=== PATIENT | male | born 1965 | race African-American/Black ===

== ENCOUNTER 2018-06-23 05:20 | Day surgery (SDC) | payer OTHER ==
[2018-06-22 12:53] VITALS: BMI 23.6
[2018-06-23] MEDS ORDERED: LIDOCAINE HCL 1%, 10 MG/ML (20ML VIAL) ONE (09:32)
--- NOTE | 2018-06-23 09:32 | HP ---
History & Physical Update - History History: No Change - Physical Physical: No Change - Assessment Assessment: No Change - Plan Plan: No Change (for LIH repair w/mesh; r/b/t/a/'s possible recurrence d/w the patient pre-op in the office and informaed consent obtained)
[2018-06-23] MEDS ORDERED: BUPIVACAINE HCL/PF 0.5% (5MG/ML) 10 ML VIAL ONE (09:33)
[2018-06-23] MEDS ORDERED: BENZOIN TINCTURE SWABSTICK TP ONE (09:34)
[2018-06-23] MEDS ORDERED: oxyCODONE HCL 5 MG TABLET PO PRN (09:48)
[2018-06-23] MEDS ORDERED: PROMETHAZINE HCL 25 MG/1 ML VIAL IVPUSH PRN (09:48)
[2018-06-23] MEDS ORDERED: ONDANSETRON 4 MG/2 ML VIAL IVPUSH PRN (09:48)
[2018-06-23] MEDS ORDERED: MIDAZOLAM HCL 2 MG/2 ML SINGLE DOSE VIAL ONE ×2 (09:54)
[2018-06-23] MEDS ORDERED: ROCURONIUM BROMIDE 50 MG/5 ML VIAL ONE (09:58)
[2018-06-23] MEDS ORDERED: fentaNYL CITRATE 250 MCG/5 ML VIAL ONE (09:58)
[2018-06-23] MEDS ORDERED: LACTATED RINGERS SOLUTION 1,000 ML IV SCH (10:00)
[2018-06-23] MEDS ORDERED: PROPOFOL 20 ML ONE (10:00)
[2018-06-23] MEDS ORDERED: ceFAZolin SODIUM 1 GM VIAL IVPB ONE (10:02)
[2018-06-23] MEDS ORDERED: LIDOCAINE HCL 1%, 10 MG/ML (50 mL VIAL) IJ ONE ×2 (10:19)
[2018-06-23] MEDS ORDERED: BUPIVACAINE HCL/PF (5 MG/ML) 30 ML VIAL IJ ONE ×2 (10:19)
[2018-06-23] MEDS ORDERED: ePHEDrine SULFATE 50 MG/1 ML AMPULE ONE (10:34)
[2018-06-23] MEDS ORDERED: GLYCOPYRROLATE 0.2 MG/1 ML VIAL ONE (11:00)
[2018-06-23] MEDS ORDERED: NEOSTIGMINE METHYLSULFATE 0.5 MG/ML - 10 ML MDV ONE (11:00)
--- NOTE | 2018-06-23 12:27 | OP ---
Operative Note - Note: Operative Date: 06/23/18 Pre-Operative Diagnosis: Left inguinal hernia Operation: Open left inguinal hernia repair with mesh Post-Operative Diagnosis: Same as Pre-op Surgeon: All Mcmillan Turner Off: Risa Fried Anesthesiologist/SYSTEM SUPPORT DEVELOPER: Demi Knutson MD Anesthesia: General Estimated Blood Loss (mls): 20 Fluid Volume Replaced (mls): 1,000 Operative Report Dictated: Yes
--- NOTE | 2018-06-23 12:29 | SURG ---
Surgery Manager Style Note Manager Style: Risa Fried PA-C Date of Service: 06/23/18 Diagnosis: left inguinal hernia Procedure: Left inguinal hernia repair with mesh I was present for the entirety of the operative procedure. For further detail, please refer to operative report. Visit type - Case Type Case Type: Scheduled - Emergency Emergency Visit: No - New patient This patient is new to me today: Yes Date on this admission: 06/23/18
[2018-06-23 13:40] VITALS: BP 159/96; PULSE 60; TEMP 97.7
--- NOTE | 2018-06-27 19:13 | OP ---
DATE OF OPERATION: 06/23/2018 PREOPERATIVE DIAGNOSIS: Left inguinal hernia. POSTOPERATIVE DIAGNOSIS: Left inguinal hernia. PROCEDURE: Repair of left inguinal hernia with mesh. SURGEON: All Mcmillan MD [employer] 9 THRU 12 TEACHER: Risa Fried PA-C ANESTHESIA: General. OPERATIVE FINDINGS: There was a direct left inguinal hernia. The rest of the findings were unremarkable. DESCRIPTION OF PROCEDURE: The patient was placed on the operating table in supine position, and after the induction of general anesthesia, the patient's left groin was prepped with ChloraPrep and draped in sterile fashion. A timeout was taken and incision mapped out in the left groin and the area infiltrated with 1% Xylocaine and 0.5% Marcaine in equal concentration. Incision was made with a scalpel and taken down through skin, subcutaneous tissue, and Darrell fascia to the external oblique fascia. It was divided proximally and then distally through the external ring in the direction of its fibers. The cord structures and nerve were elevated to the level of the pubic tubercle and a Meridian drain placed around them for traction and identification purposes. The previously noted findings were observed. There was no evidence of an indirect inguinal hernia. A piece of Parietex ProGrip mesh was fashioned into the defect and anchored at the pubic tubercle, shelving edge, and conjoint tendon, respectively, with interrupted 2-0 Prolene. A keyhole was created for the cord structures and the tails of the mesh brought above the level of the internal ring and anchored there with interrupted 2-0 Prolene. Hemostasis was checked for and noted to be good, and then, the wound was copiously irrigated with sterile saline. Hemostasis was again verified, and then, the cord structures and nerve were returned to their normal anatomic position. The external oblique fascia was closed using continuous 2-0 Vicryl, recreating the external ring. Darrell fascia was reapproximated with interrupted 2-0 Vicryl, the deep dermis with interrupted 3-0 Vicryl, and the skin edges with 4-0 Monocryl in a subcuticular continuous fashion. Steri-Strips, fluffs, and Tegaderm dressing were placed and the procedure terminated at this point and the patient aroused from general anesthesia and transferred to the postanesthesia care unit in stable condition, awake and alert. ESTIMATED BLOOD LOSS: 10 mL REPLACEMENTS: Crystalloid. DRAINS: None. SPECIMENS: None. I, All N. Mcmillan, MD, was physically present in the operating room from the time the patient was placed on the operating table until he was transferred to the postanesthesia care unit in my accompaniment. All Mcmillan MD [id number] [id number]
== END 2018-06-23 13:35 | disposition home or self-care (01) ==
LOC: JASU-SURG 05:20
PROVIDERS: ATTEND Surgery
PROC: 0YU60JZ Supplement Left Inguinal Region with Synthetic Substitute, Open Approach (ICD-10-PCS; principal; 2018-06-23 10:00)
DX: K40.90 Unilateral inguinal hernia, without obstruction or gangrene, not specified as recurrent (principal); I10 Essential (primary) hypertension
CPT/HCPCS: 94760

== ENCOUNTER 2021-01-30 08:58 | Observation (INO) | payer OTHER ==
[2021-01-30 09:16] VITALS: BMI 22.1
[2021-01-30] MEDS ORDERED: SODIUM CHLORIDE 0.9% 500 ML INFUS.BAG IV ONE (09:33)
[2021-01-30 10:10] LABS: EPI CELLS 2 /uL (0-25.1); HYALINE CASTS 0 /uL (0-3.1); URINE APPEARANCE CLEAR; URINE BACTERIA 19 /uL (0-1359); URINE BILIRUBIN NEGATIVE (NEGATIVE); URINE COLOR YELLOW; URINE GLUCOSE (UA) NEGATIVE (NEGATIVE); URINE KETONE 2+ (NEGATIVE); URINE LEUK ESTERASE NEGATIVE (NEGATIVE); URINE NITRITE NEGATIVE (NEGATIVE); URINE PROTEIN 1+ (NEGATIVE); URINE RBC 80 /uL (0-23.9); URINE WBC 3 /uL (0-25.8)
[2021-01-30 10:10] LABS: HEMOGLOBIN 12.9 GM/dL (11.7-16.9); MCH 25.5 pg (25.7-33.7); MCHC 32.3 g/dl (32.0-35.9); MEAN PLT VOLUME 8.4 fl (7.5-11.1); PLATELET COUNT 354 10^3/uL (134-434); RBC 5.06 M/mm3 (4.00-5.60); RDW 17.5 % (11.9-15.9)
[2021-01-30 10:19] LABS: WHITE BLOOD COUNT 18.9 K/mm3 (4.0-10.0)
[2021-01-30 10:34] LABS: METHADONE, UR NEGATIVE (NEGATIVE); URINE BENZODIAZEPINES NEGATIVE (NEGATIVE)
[2021-01-30 10:35] LABS: CALCIUM 9.7 mg/dL (8.5-10.1)
[2021-01-30 10:36] LABS: ALBUMIN 3.4 g/dl (3.4-5.0); BLOOD UREA NITROGEN 13.5 mg/dL (7-18)
[2021-01-30 10:40] LABS: BILIRUBIN,TOTAL 0.5 mg/dL (0.2-1)
[2021-01-30 10:42] LABS: TOT PROT 8.9 g/dl (6.4-8.2)
[2021-01-30] MEDS ORDERED: BUPRENORPHINE/NALOXONE 4 MG/1 MG FILM PACKET SL ONE (10:45)
[2021-01-30 10:47] LABS: COCAINE, UR POSITIVE (NEGATIVE); OPIATES, URI POSITIVE (NEGATIVE); PHENCYCLIDINE,URINE NEGATIVE (NEGATIVE); URINE AMPHETAMINES NEGATIVE (NEGATIVE); URINE BARBITURATES NEGATIVE (NEGATIVE)
[2021-01-30] MEDS ORDERED: VANCOMYCIN 1 GM in D5W (PRE-DOCKED) 1,000 MG/250 ML IVPB ONE (10:47)
[2021-01-30] MEDS ORDERED: BUPRENORPHINE/NALOXONE 8 MG/2 MG FILM PACKET ONE (10:50)
[2021-01-30] MEDS ORDERED: VANCOMYCIN 1 GRAM (PRE-DOCKED) 1,000 MG/250 ML BAG IVPB ONE (11:11)
[2021-01-30 11:17] LABS: ANISOCYTOSIS 0; HELMET CELLS 0; HOWELL-JOLLY BODIES 0; MACROCYTOSIS 0; OVALOCYTE 0; PLATELET ESTIMATE NORMAL; ROULEAU 0; SICKELED CELLS 0; TARGET CELLS 0; TEAR DROP CELLS 0; TOXIC GRANULATION 0
[2021-01-30] MEDS ORDERED: methaDONE HCL 10 MG TABLET (FOR DETOX USE ONLY) PO ONE (11:38)
[2021-01-30] MEDS ORDERED: methaDONE HCL 10 MG TABLET ONE (11:52)
[2021-01-30] MEDS ORDERED: ONDANSETRON 4 MG/2 ML VIAL IVPUSH ONE (12:01)
[2021-01-30] MEDS ORDERED: ONDANSETRON 4 MG/2 ML VIAL ONE (12:03)
[2021-01-30] MEDS ORDERED: cloNIDine HCL 0.1 MG TABLET PO ONE ×2 (12:15→16:18)
[2021-01-30] MEDS ORDERED: cloNIDine HCL 0.1 MG TABLET ONE ×2 (12:18→17:06)
[2021-01-30] MEDS ORDERED: TRIMETHOBENZAMIDE HCL 200MG/2ML INJ IM PRN (13:58)
[2021-01-30] MEDS ORDERED: MAGNESIUM SULF 50% (8.12 MEQ/2 ML-1 GM VIAL) IVPB ONE (13:59)
[2021-01-30] MEDS ORDERED: SODIUM CHLORIDE 1,000 ML IV SCH (14:00)
[2021-01-30] MEDS ORDERED: LOPERAMIDE HCL 2 MG CAPSULE PO PRN (14:02)
[2021-01-30] MEDS ORDERED: MAGNESIUM SULFATE IN WATER 2 GM/50 ML IVPB IVPB ONE (14:08)
[2021-01-30] MEDS ORDERED: ACETAMINOPHEN 500 MG TABLET (FP) PO ONE (16:59)
[2021-01-30] MEDS ORDERED: DICYCLOMINE HCL 20 MG/2 ML AMPUL IM ONE (16:59)
[2021-01-30] MEDS ORDERED: ACETAMINOPHEN 325 MG TABLET (FP) ONE (17:06)
[2021-01-30] MEDS: cloNIDine HCL 0.1 MG TABLET PO PRN ×2 (18:52→22:45)
[2021-01-30] MEDS ORDERED: LIDOCAINE 5% TOPICAL PATCH TP ONE (20:00)
[2021-01-30] MEDS ORDERED: MELATONIN 5 MG TABLETS PO ONE (20:56)
[2021-01-31] MEDS ORDERED: amLODIPine BESYLATE 5 MG TABLET (FP) PO ONE (02:06)
[2021-01-31] MEDS: cloNIDine HCL 0.1 MG TABLET PO PRN (02:17)
[2021-01-31] MEDS ORDERED: LIDOCAINE PATCH REMOVAL MC SCH (08:00)
[2021-01-31] MEDS ORDERED: NITROGLYCERIN 2% OINTMENT - 1GM PACKET TD PRN (08:17)
[2021-01-31 08:48] LABS: BASO % 0.6 % (0-2.0); EOS % 0.1 % (0-4.5); HEMATOCRIT 40.5 % (35.4-49); HEMOGLOBIN 13.4 GM/dL (11.7-16.9); LYMPH % 12.6 % (8-40); MCHC 33.2 g/dl (32.0-35.9); MEAN CELL VOLUME 78.5 fl (80-96); MONO % 6.8 % (3.8-10.2); NEUT % 79.9 % (42.8-82.8); PLATELET COUNT 404 10^3/uL (134-434); RBC 5.16 M/mm3 (4.00-5.60); RDW 17.2 % (11.9-15.9); WHITE BLOOD COUNT 15.5 K/mm3 (4.0-10.0)
[2021-01-31 09:18] LABS: ALBUMIN 3.4 g/dl (3.4-5.0); BLOOD UREA NITROGEN 9.3 mg/dL (7-18); MAGNESIUM 2.1 mg/dL (1.8-2.4)
[2021-01-31 09:21] LABS: CREATININE 0.9 mg/dL (0.55-1.3); PHOSPHOROUS 3.3 mg/dL (2.5-4.9)
[2021-01-31 09:23] LABS: BILIRUBIN,TOTAL 0.6 mg/dL (0.2-1); TOT PROT 8.6 g/dl (6.4-8.2)
[2021-01-31] MEDS ORDERED: POTASSIUM CHLORIDE TABS 20 MEQ TABLET.ER (FP) PO ONE (09:45)
[2021-01-31] MEDS: amLODIPine BESYLATE 10 MG TABLET (FP) PO SCH (09:53)
[2021-01-31] MEDS: hydrALAZINE HCL 10 MG TABLET PO SCH ×2 (09:53→22:37)
[2021-01-31] MEDS: ENOXAPARIN NA (PORCINE) 40 MG/0.4 ML DISP.SYRIN SQ SCH (09:54)
[2021-01-31] MEDS ORDERED: methaDONE HCL 10 MG TABLET ONE (09:56)
[2021-01-31] MEDS ORDERED: MAGNESIUM SULF 50% (8.12 MEQ/2 ML-1 GM VIAL) IVPB ONE (10:00)
[2021-01-31] MEDS ORDERED: MELATONIN 5 MG TABLETS PO ONE (20:48)
[2021-02-01] MEDS: hydrALAZINE HCL 10 MG TABLET PO SCH (06:40)
[2021-02-01] MEDS ORDERED: methaDONE HCL 10 MG TABLET PO ONE (07:45)
[2021-02-01] MEDS ORDERED: hydrALAZINE HCL 10 MG TABLET PO SCH (08:50)
[2021-02-01] MEDS ORDERED: ACETAMINOPHEN 325 MG TABLET (FP) PO PRN (08:54)
[2021-02-01] MEDS ORDERED: hydrALAZINE HCL 10 MG TABLET PO ONE (08:55)
[2021-02-01] MEDS ORDERED: ACETAMINOPHEN 325 MG TABLET (FP) ONE (08:56)
[2021-02-01 09:04] VITALS: PULSE 88; TEMP 98.1
[2021-02-01] MEDS: ENOXAPARIN NA (PORCINE) 40 MG/0.4 ML DISP.SYRIN SQ SCH (09:06)
[2021-02-01] MEDS: amLODIPine BESYLATE 10 MG TABLET (FP) PO SCH (09:06)
[2021-02-01 10:47] VITALS: BP 190/130
[2021-02-03] MEDS ORDERED: methaDONE HCL 10 MG TABLET PO ONE (10:00)
== END 2021-02-01 10:49 | disposition left against medical advice (07) ==
LOC: JER 08:58 → JERBED 12:41 → UNDOADMOB 12:41 → INTOOBSV 12:41 → J4W 17:37 → JERBED 17:37 → J4W 01-31 09:38
PROVIDERS: ATTEND Student in an Organized Health Care Education/Training Program
PROC: 3E023GC Introduction of Other Therapeutic Substance into Muscle, Percutaneous Approach (ICD-10-PCS; principal; 2021-01-31)
PROC: 3E033GC Introduction of Other Therapeutic Substance into Peripheral Vein, Percutaneous Approach (ICD-10-PCS; 2021-01-31)
PROC: 3E0337Z Introduction of Electrolytic and Water Balance Substance into Peripheral Vein, Percutaneous Approach (ICD-10-PCS; 2021-01-31)
PROC: 3E03329 Introduction of Other Anti-infective into Peripheral Vein, Percutaneous Approach (ICD-10-PCS; 2021-01-31)
DX: F11.23 Opioid dependence with withdrawal (principal); R79.89 Other specified abnormal findings of blood chemistry; D72.829 Elevated white blood cell count, unspecified; F19.10 Other psychoactive substance abuse, uncomplicated; I10 Essential (primary) hypertension; R19.7 Diarrhea, unspecified; Z29.9 Encounter for prophylactic measures, unspecified; E87.6 Hypokalemia
CPT/HCPCS: 36415; 71046-TC-FY; 80053; 80307; 81003; 83735; 84100; 85025; 87040; 87086; 87804; 93005; 93010; 96361; 96372; 96374; 96375; 96376; 99285-25; C9803; G0378; J0735; U0003; U0005

== ENCOUNTER 2021-05-08 14:58 | Emergency (ER) | payer OTHER ==
[2021-05-08 15:40] VITALS: BP 189/89; PULSE 74; TEMP 98.2; BMI 25.8
[2021-05-08] MEDS ORDERED: ONDANSETRON 4 MG TABLET PO ONE (17:12)
[2021-05-08 17:24] LABS: HEMATOCRIT 39.3 % (35.4-49); MCH 26.5 pg (25.7-33.7); MEAN CELL VOLUME 80.3 fl (80-96); MEAN PLT VOLUME 7.8 fl (7.5-11.1); PLATELET COUNT 398 10^3/uL (134-434); RDW 16.5 % (11.9-15.9); WHITE BLOOD COUNT 22.8 K/mm3 (4.0-10.0)
[2021-05-08] MEDS ORDERED: ONDANSETRON 4 MG/2 ML VIAL ONE (17:34)
[2021-05-08] MEDS ORDERED: ONDANSETRON *ODT* 4 MG TABLET ONE (17:35)
[2021-05-08 17:43] LABS: CHLORIDE 99 mmol/L (98-107); SODIUM 136 mmol/L (136-145)
[2021-05-08 17:45] LABS: CALCIUM 9.7 mg/dL (8.5-10.1)
[2021-05-08 17:46] LABS: ALBUMIN 3.6 g/dl (3.4-5.0); BLOOD UREA NITROGEN 13.5 mg/dL (7-18); CO2 27 mmol/L (21-32); GLUCOSE,RANDOM 134 mg/dL (74-106)
[2021-05-08 17:49] LABS: CREATININE 1.3 mg/dL (0.55-1.3); SGOT/AST 15 U/L (15-37); SGPT/ALT 17 U/L (13-61)
[2021-05-08 17:50] LABS: MAGNESIUM 1.9 mg/dL (1.8-2.4)
[2021-05-08 17:51] LABS: BILIRUBIN,TOTAL 0.4 mg/dL (0.2-1); TOT PROT 8.9 g/dl (6.4-8.2)
[2021-05-08 17:52] LABS: ALK PHOS 129 U/L (45-117)
[2021-05-08 17:56] LABS: ANION GAP 9 MMOL/L (8-16)
[2021-05-08] MEDS ORDERED: KCL 10 MEQ IVPB 10 MEQ/100 ML INFUS.BAG IVPB SCH (18:15)
[2021-05-08] MEDS ORDERED: POTASSIUM CHLORIDE TABS 20 MEQ TABLET.ER (FP) PO ONE ×3 (18:16→18:23)
[2021-05-08] MEDS ORDERED: LORazepam 2 MG TABLET PO ONE (18:17)
[2021-05-08] MEDS ORDERED: LORazepam 1 MG TABLET ONE (18:23)
[2021-05-08 19:09] LABS: ANISOCYTOSIS 1+; MACROCYTOSIS 0; OVALOCYTE 1+; PLATELET ESTIMATE NORMAL; TARGET CELLS 1+
[2021-05-08 21:03] LABS: CALCIUM 9.7 mg/dL (8.5-10.1)
[2021-05-08 21:04] LABS: BLOOD UREA NITROGEN 12.2 mg/dL (7-18)
[2021-05-08 21:07] LABS: CREATININE 1.1 mg/dL (0.55-1.3)
[2021-05-09] MEDS ORDERED: ASPIRIN 325 MG ENTERIC COATED TABLET (FP) PO SCH (10:00)
== END 2021-05-08 21:05 | disposition short-term general hospital (02) ==
LOC: JER 14:58
PROC: 3E033GC Introduction of Other Therapeutic Substance into Peripheral Vein, Percutaneous Approach (ICD-10-PCS; principal; 2021-05-08)
DX: R06.02 Shortness of breath (principal); R07.9 Chest pain, unspecified; R11.2 Nausea with vomiting, unspecified; F11.23 Opioid dependence with withdrawal
CPT/HCPCS: 36415; 71045-TC-FY; 80048; 80053; 82550; 83735; 84484; 85025; 93005; 93010; 99285-25; C9803; U0003; U0005

== ENCOUNTER 2021-05-09 12:43 | Inpatient (IN) | payer OTHER ==
[2021-05-09] MEDS ORDERED: NICOTINE 10 MG CARTRIDGE (INHALER) IH PRN (13:16)
[2021-05-09] MEDS ORDERED: ACETAMINOPHEN 325 MG TABLET (FP) PO PRN ×2 (13:16)
[2021-05-09] MEDS ORDERED: BISMUTH SUBSALICYLATE 262 MG/15 ML BTL PO PRN (13:16)
[2021-05-09] MEDS ORDERED: MENTHOL/PHENOL 1 EACH UD MM PRN (13:16)
[2021-05-09] MEDS ORDERED: METHOCARBAMOL 500 MG TABLET PO PRN (13:16)
[2021-05-09] MEDS ORDERED: MAG HYDROX/AL HYDROX/SIMETH 30 ML UNIT-DOSE CUP PO PRN (13:16)
[2021-05-09] MEDS ORDERED: IBUPROFEN 400 MG TABLET (FP) PO PRN (13:16)
[2021-05-09] MEDS ORDERED: MAGNESIUM CITRATE 300 ML BOTTLE PO PRN (13:16)
[2021-05-09] MEDS ORDERED: methaDONE HCL 10 MG TABLET (FOR DETOX USE ONLY) PO ONE (13:16)
[2021-05-09] MEDS ORDERED: MAGNESIUM HYDROX 2400MG/30ML ORAL SUSPENSION 30 ML CUP PO PRN (13:16)
[2021-05-09 13:17] VITALS: BMI 20.5
[2021-05-09] MEDS: cloNIDine HCL 0.1 MG TABLET PO PRN (13:29)
[2021-05-09] MEDS: ONDANSETRON *ODT* 4 MG TABLET SL PRN (13:29)
[2021-05-09] MEDS: amLODIPine BESYLATE 10 MG TABLET (FP) PO SCH (14:38)
[2021-05-09] MEDS: HYDROCHLOROTHIAZIDE 25 MG TABLET (FP) PO SCH (14:39)
[2021-05-09] MEDS: hydrOXYzine PAMOATE 25 MG CAPSULE (FP) PO SCH ×3 (14:39→22:20)
[2021-05-09] MEDS: PRENATAL VITAMINS W/ FOLIC ACID TABLET (FP) PO SCH (14:39)
[2021-05-09] MEDS: THIAMINE HCL 100 MG TABLET (FP) PO SCH (22:20)
[2021-05-09] MEDS: MELATONIN 5 MG TABLETS PO SCH (22:20)
[2021-05-10] MEDS: hydrOXYzine PAMOATE 25 MG CAPSULE (FP) PO SCH ×5 (05:14→22:19)
[2021-05-10] MEDS: cloNIDine HCL 0.1 MG TABLET PO PRN (07:00)
[2021-05-10] MEDS ORDERED: methaDONE HCL 10 MG TABLET (FOR DETOX USE ONLY) ONE (08:57)
[2021-05-10] MEDS: HYDROCHLOROTHIAZIDE 25 MG TABLET (FP) PO SCH (09:05)
[2021-05-10] MEDS: PRENATAL VITAMINS W/ FOLIC ACID TABLET (FP) PO SCH (09:05)
[2021-05-10] MEDS: ONDANSETRON *ODT* 4 MG TABLET SL PRN (09:33)
[2021-05-10] MEDS: amLODIPine BESYLATE 10 MG TABLET (FP) PO SCH (10:55)
[2021-05-10] MEDS ORDERED: TRIMETHOBENZAMIDE HCL 200MG/2ML INJ IM ONE (11:30)
[2021-05-10] MEDS: diazePAM 5 MG TABLET PO PRN (14:23)
[2021-05-10] MEDS: MELATONIN 5 MG TABLETS PO SCH (22:19)
[2021-05-10] MEDS: THIAMINE HCL 100 MG TABLET (FP) PO SCH (22:19)
[2021-05-11] MEDS: diazePAM 5 MG TABLET PO PRN ×2 (02:14→06:17)
[2021-05-11] MEDS: hydrOXYzine PAMOATE 25 MG CAPSULE (FP) PO SCH ×2 (05:33→09:16)
[2021-05-11] MEDS: cloNIDine HCL 0.1 MG TABLET PO PRN (07:27)
[2021-05-11] MEDS: amLODIPine BESYLATE 10 MG TABLET (FP) PO SCH (09:16)
[2021-05-11] MEDS: PRENATAL VITAMINS W/ FOLIC ACID TABLET (FP) PO SCH (09:17)
[2021-05-11] MEDS: HYDROCHLOROTHIAZIDE 25 MG TABLET (FP) PO SCH (09:17)
[2021-05-11] MEDS ORDERED: methaDONE HCL 10 MG TABLET (FOR DETOX USE ONLY) PO ONE (10:00)
[2021-05-11] MEDS ORDERED: ONDANSETRON *ODT* 4 MG TABLET SL ONE (10:41)
[2021-05-11] MEDS ORDERED: TRIMETHOBENZAMIDE HCL 200MG/2ML INJ IM PRN (10:43)
[2021-05-11] MEDS ORDERED: LISINOPRIL 20 MG TABLET PO SCH ×2 (10:45→18:26)
[2021-05-11] MEDS ORDERED: DICYCLOMINE HCL 20 MG TABLET PO ONE (10:54)
[2021-05-11] MEDS ORDERED: DICYCLOMINE HCL 10 MG CAPSULE PO ONE (11:00)
[2021-05-11] MEDS: FAMOTIDINE 20 MG TABLET PO SCH ×2 (11:18→22:04)
[2021-05-11] MEDS ORDERED: HYDROCHLOROTHIAZIDE 25 MG TABLET (FP) PO SCH (18:26)
[2021-05-11] MEDS ORDERED: amLODIPine BESYLATE 10 MG TABLET (FP) PO SCH (18:26)
[2021-05-11] MEDS: MELATONIN 5 MG TABLETS PO SCH (22:03)
[2021-05-11] MEDS: THIAMINE HCL 100 MG TABLET (FP) PO SCH (22:04)
[2021-05-12 07:16] VITALS: BP 119/57; PULSE 86; TEMP 97.3
[2021-05-12] MEDS ORDERED: methaDONE HCL 10 MG TABLET (FOR DETOX USE ONLY) ONE (09:00)
[2021-05-13] MEDS ORDERED: methaDONE HCL 10 MG TABLET (FOR DETOX USE ONLY) PO ONE (10:00)
== END 2021-05-12 09:25 | disposition left against medical advice (07) | DRG 770 ==
LOC: YASAS 12:43 → Y6N 13:53
PROVIDERS: ADMIT Allergy & Immunology; ATTEND Allergy & Immunology
PROC: HZ2ZZZZ Detoxification Services for Substance Abuse Treatment (ICD-10-PCS; principal; 2021-05-09)
DX: F11.23 Opioid dependence with withdrawal (principal); F14.20 Cocaine dependence, uncomplicated; F12.20 Cannabis dependence, uncomplicated; F17.210 Nicotine dependence, cigarettes, uncomplicated; I10 Essential (primary) hypertension; K21.9 Gastro-esophageal reflux disease without esophagitis; D72.829 Elevated white blood cell count, unspecified; I25.2 Old myocardial infarction; R42 Dizziness and giddiness; W18.30XA Fall on same level, unspecified, initial encounter; Y92.238 Other place in hospital as the place of occurrence of the external cause
CPT/HCPCS: 36415; 71045-TC-FY; 80048; 80053; 82550; 83735; 84484; 85025; 86780; 93005; 93010; 99285-25; C9803; J0735; Q0162; U0003; U0005

== ENCOUNTER 2022-02-17 03:58 | Inpatient (IN) | payer OTHER ==
[2022-02-17] MEDS ORDERED: ONDANSETRON 4 MG/2 ML VIAL IVPUSH ONE (04:22)
[2022-02-17] MEDS ORDERED: MAG HYDROX/AL HYDROX/SIMETH -MYLANTA- ORAL SUSPENSION PO ONE (04:22)
[2022-02-17] MEDS ORDERED: FAMOTIDINE 20 MG/50 ML IVPB 20 MG/50 ML MG IVPB ONE ×2 (04:22→04:30)
[2022-02-17] MEDS ORDERED: SODIUM CHLORIDE 0.9% 500 ML INFUS.BAG IV ONE (04:22)
[2022-02-17] MEDS ORDERED: MAG HYDROX/AL HYDROX/SIMETH 30 ML UNIT-DOSE CUP ONE (04:29)
[2022-02-17] MEDS ORDERED: ONDANSETRON 4 MG/2 ML VIAL ONE (04:30)
[2022-02-17] MEDS ORDERED: LORazepam 2 MG/ML SDV VIAL IVPUSH ONE (04:33)
[2022-02-17 04:44] LABS: HEMATOCRIT 43.1 % (35.4-49); HEMOGLOBIN 14.2 GM/dL (11.7-16.9); MCH 26.1 pg (25.7-33.7); MEAN CELL VOLUME 79.1 fl (80-96); MEAN PLT VOLUME 7.7 fl (7.5-11.1); PLATELET COUNT 392 10^3/uL (134-434); RBC 5.46 M/mm3 (4.00-5.60); RDW 17.5 % (11.9-15.9); WHITE BLOOD COUNT 23.9 K/mm3 (4.0-10.0)
[2022-02-17 04:52] LABS: INR 1.25 (0.83-1.09); PROTHROMBIN TIME (PATIENT) 14.4 SEC (9.7-13.0)
[2022-02-17 04:55] LABS: ACTIVATED PTT 35.5 SECONDS (25.2-36.5)
[2022-02-17 05:02] LABS: CHLORIDE 92 mmol/L (98-107); SODIUM 134 mmol/L (136-145)
[2022-02-17 05:04] LABS: CALCIUM 9.7 mg/dL (8.5-10.1)
[2022-02-17 05:05] LABS: ALBUMIN 3.7 g/dl (3.4-5.0); BLOOD UREA NITROGEN 21.2 mg/dL (7-18); CO2 26 mmol/L (21-32); GLUCOSE,RANDOM 129 mg/dL (74-106); LIPASE 34 U/L (73-393); MAGNESIUM 1.9 mg/dL (1.8-2.4)
[2022-02-17 05:08] LABS: BILIRUBIN,TOTAL 0.4 mg/dL (0.2-1); CREATININE 1.6 mg/dL (0.55-1.3); SGOT/AST 19 U/L (15-37); SGPT/ALT 21 U/L (13-61); TOT PROT 8.7 g/dl (6.4-8.2)
[2022-02-17 05:11] LABS: ALK PHOS 128 U/L (45-117)
[2022-02-17] MEDS ORDERED: hydrALAZINE HCL 20 MG/ML VIAL IVPUSH ONE (05:11)
[2022-02-17] MEDS ORDERED: hydrALAZINE HCL 20 MG/ML VIAL ONE (05:14)
[2022-02-17 05:21] LABS: ANION GAP 15 MMOL/L (8-16)
[2022-02-17] MEDS ORDERED: POTASSIUM CHLORIDE TABS 20 MEQ TABLET.ER (FP) PO ONE (05:23)
[2022-02-17] MEDS ORDERED: POTASSIUM CHLORIDE ORAL LIQUID 20 MEQ/15 ML ONE (05:36)
[2022-02-17] MEDS ORDERED: KCL 10 MEQ IVPB 10 MEQ/100 ML INFUS.BAG IVPB ONE ×3 (06:26→14:10)
[2022-02-17] MEDS: KCL 10 MEQ IVPB 10 MEQ/100 ML INFUS.BAG IVPB SCH ×3 (06:32→14:13)
[2022-02-17 06:46] LABS: ANISOCYTOSIS 1+; MACROCYTOSIS 1+
[2022-02-17 09:17] LABS: EPI CELLS 26 /uL (0-25.1); HYALINE CASTS 5 /uL (0-3.1); URINE APPEARANCE CLEAR; URINE BACTERIA 68 /uL (0-1359); URINE BILIRUBIN NEGATIVE (NEGATIVE); URINE COLOR YELLOW; URINE GLUCOSE (UA) TRACE (NEGATIVE); URINE KETONE TRACE (NEGATIVE); URINE LEUK ESTERASE 1+ (NEGATIVE); URINE NITRITE NEGATIVE (NEGATIVE); URINE PROTEIN 2+ (NEGATIVE); URINE RBC 41 /uL (0-23.9); URINE UROBILINOGEN 0.2 mg/dL (0.2-1.0); URINE WBC 20 /uL (0-25.8)
[2022-02-17 09:21] LABS: PHENCYCLIDINE,URINE NEGATIVE (NEGATIVE); URINE AMPHETAMINES NEGATIVE (NEGATIVE); URINE BENZODIAZEPINES NEGATIVE (NEGATIVE)
[2022-02-17 09:22] LABS: COCAINE, UR POSITIVE (NEGATIVE); METHADONE, UR POSITIVE (NEGATIVE); OPIATES, URI POSITIVE (NEGATIVE); URINE BARBITURATES NEGATIVE (NEGATIVE)
[2022-02-17] MEDS ORDERED: dilTIAZem HCL 25 MG/5 ML - 5 ML VIAL IVPUSH PRN (09:39)
[2022-02-17] MEDS ORDERED: TRIMETHOBENZAMIDE HCL 200MG/2ML INJ IM ONE ×2 (09:49→09:55)
[2022-02-17] MEDS ORDERED: NIFEdipine E.R. 30 MG TABLET ONE (09:55)
[2022-02-17] MEDS: NIFEdipine E.R. 30 MG TABLET PO SCH ×2 (10:00→10:09)
[2022-02-17] MEDS ORDERED: hydrALAZINE HCL 20 MG/ML VIAL IVPUSH PRN (10:25)
[2022-02-17] MEDS ORDERED: dilTIAZem HCL 125 MG/25 ML - 25 ML VIAL ONE ×2 (11:41→23:05)
[2022-02-17] MEDS ORDERED: methaDONE HCL 10 MG TABLET ONE (12:12)
[2022-02-17] MEDS ORDERED: methaDONE HCL 40 MG DISPERSABLE TABLET ONE (12:12)
[2022-02-17] MEDS ORDERED: methaDONE HCL 40 MG DISPERSABLE TABLET PO SCH (12:12)
[2022-02-17] MEDS ORDERED: CEFTRIAXONE 1 GM/50 ML BAG ONE (12:27)
[2022-02-17] MEDS: CEFTRIAXONE 1 GM in DEXTROSE 5%-WATER - 50 ML IVPB SCH (13:06)
[2022-02-17] MEDS: NICARDIPINE 25 MG in DEXTROSE 5%-WATER - 240 ML IVPB SCH (13:40)
[2022-02-17 14:05] LABS: HEMATOCRIT 42.7 % (35.4-49); HEMOGLOBIN 13.9 GM/dL (11.7-16.9); MCHC 32.5 g/dl (32.0-35.9); MEAN PLT VOLUME 8.3 fl (7.5-11.1); PLATELET COUNT 417 10^3/uL (134-434); RBC 5.34 M/mm3 (4.00-5.60); RDW 17.3 % (11.9-15.9); WHITE BLOOD COUNT 20.6 K/mm3 (4.0-10.0)
[2022-02-17] MEDS ORDERED: HEPARIN NA (PORCINE) 5,000 UNITS/ML 1ML VIAL ONE (14:10)
[2022-02-17] MEDS: HEPARIN NA (PORCINE) 5,000 UNITS/ML 1ML VIAL SQ SCH ×2 (14:13→23:12)
[2022-02-17 14:32] LABS: BLOOD UREA NITROGEN 15.7 mg/dL (7-18); CALCIUM 9.8 mg/dL (8.5-10.1); CREATININE 1.2 mg/dL (0.55-1.3)
[2022-02-17 15:24] LABS: ANISOCYTOSIS 0; MACROCYTOSIS 0; OVALOCYTE 1+
[2022-02-18] MEDS ORDERED: MELATONIN 5 MG TABLETS PO ONE (00:45)
[2022-02-18] MEDS: NICARDIPINE 25 MG in DEXTROSE 5%-WATER - 240 ML IVPB SCH ×4 (01:45→20:32)
[2022-02-18 02:33] VITALS: BMI 20.7
[2022-02-18] MEDS: methaDONE 40 MG, methaDONE 20 MG PO SCH (05:16)
[2022-02-18] MEDS: HEPARIN NA (PORCINE) 5,000 UNITS/ML 1ML VIAL SQ SCH ×3 (05:17→21:06)
[2022-02-18] MEDS ORDERED: methaDONE HCL 40 MG DISPERSABLE TABLET PO SCH (06:00)
[2022-02-18] MEDS ORDERED: POTASSIUM CHLORIDE TABS 20 MEQ TABLET.ER (FP) PO ONE (07:00)
[2022-02-18 08:01] LABS: MAGNESIUM 2.1 mg/dL (1.8-2.4)
[2022-02-18 08:03] LABS: PHOSPHOROUS 2.3 mg/dL (2.5-4.9)
[2022-02-18 08:06] LABS: BASO % 0.5 % (0-2.0); EOS % 0.3 % (0-4.5); HEMATOCRIT 42.8 % (35.4-49); HEMOGLOBIN 13.9 GM/dL (11.7-16.9); LYMPH % 20.9 % (8-40); MCH 26.4 pg (25.7-33.7); MCHC 32.4 g/dl (32.0-35.9); MEAN CELL VOLUME 81.5 fl (80-96); MEAN PLT VOLUME 8.5 fl (7.5-11.1); MONO % 7.8 % (3.8-10.2); NEUT % 70.5 % (42.8-82.8); PLATELET COUNT 368 10^3/uL (134-434); RBC 5.26 M/mm3 (4.00-5.60); RDW 17.5 % (11.9-15.9)
[2022-02-18] MEDS: HYDROCHLOROTHIAZIDE 25 MG TABLET (FP) PO SCH (13:39)
[2022-02-18] MEDS: CEFTRIAXONE 1 GM in DEXTROSE 5%-WATER - 50 ML IVPB SCH (13:39)
[2022-02-18] MEDS: amLODIPine BESYLATE 10 MG TABLET (FP) PO SCH (13:39)
[2022-02-18] MEDS ORDERED: LORazepam 2 MG/ML SDV VIAL IVPUSH ONE ×2 (16:43→20:34)
[2022-02-18] MEDS ORDERED: niCARdipine HCL 25 MG/10 ML AMPUL IVPB ONE (19:20)
[2022-02-18] MEDS: MUPIROCIN 2% TOPICAL OINTMENT FOR DECOLONIZATION NS SCH (21:06)
[2022-02-18] MEDS ORDERED: CHLORHEXIDINE GLUCONATE 4% CLEANSER FOR DECOLONIZATION TP SCH (22:00)
[2022-02-18] MEDS ORDERED: MELATONIN 5 MG TABLETS PO SCH (22:00)
[2022-02-19] MEDS: methaDONE 40 MG, methaDONE 20 MG PO SCH (06:34)
[2022-02-19] MEDS: HEPARIN NA (PORCINE) 5,000 UNITS/ML 1ML VIAL SQ SCH (06:34)
[2022-02-19 06:57] LABS: BASO % 0.4 % (0-2.0); EOS % 0.5 % (0-4.5); HEMATOCRIT 42.4 % (35.4-49); HEMOGLOBIN 13.9 GM/dL (11.7-16.9); LYMPH % 25.4 % (8-40); MCH 26.5 pg (25.7-33.7); MCHC 32.7 g/dl (32.0-35.9); MEAN CELL VOLUME 81.1 fl (80-96); MONO % 7.3 % (3.8-10.2); NEUT % 66.4 % (42.8-82.8); PLATELET COUNT 328 10^3/uL (134-434); RBC 5.23 M/mm3 (4.00-5.60); WHITE BLOOD COUNT 17.8 K/mm3 (4.0-10.0)
[2022-02-19 07:14] LABS: BLOOD UREA NITROGEN 17.8 mg/dL (7-18); CALCIUM 9.6 mg/dL (8.5-10.1); MAGNESIUM 2.4 mg/dL (1.8-2.4)
[2022-02-19 07:15] LABS: ALBUMIN 3.2 g/dl (3.4-5.0)
[2022-02-19 07:17] LABS: CREATININE 1.2 mg/dL (0.55-1.3); PHOSPHOROUS 3.9 mg/dL (2.5-4.9)
[2022-02-19 07:19] LABS: BILIRUBIN,TOTAL 0.5 mg/dL (0.2-1); TOT PROT 7.8 g/dl (6.4-8.2)
[2022-02-19] MEDS: CEFTRIAXONE 1 GM in DEXTROSE 5%-WATER - 50 ML IVPB SCH (09:53)
[2022-02-19] MEDS: HYDROCHLOROTHIAZIDE 25 MG TABLET (FP) PO SCH (09:54)
[2022-02-19] MEDS: MUPIROCIN 2% TOPICAL OINTMENT FOR DECOLONIZATION NS SCH (09:54)
[2022-02-19] MEDS: amLODIPine BESYLATE 10 MG TABLET (FP) PO SCH (09:54)
[2022-02-19 10:26] VITALS: TEMP 98.5
[2022-02-19] MEDS ORDERED: LOSARTAN POTASSIUM 25 MG TABLET PO ONE (12:00)
[2022-02-19 12:13] VITALS: RESP 20
[2022-02-19 13:03] VITALS: BP 158/100; PULSE 83
== END 2022-02-19 13:33 | disposition home or self-care (01) | DRG 199 ==
LOC: JER 03:58 → JERBED 06:58 → JICU 02-18 01:40
PROVIDERS: ADMIT Internal Medicine; ATTEND Internal Medicine Pulmonary Disease
DX: I16.1 Hypertensive emergency (principal); Z91.14 Patient's other noncompliance with medication regimen; E87.6 Hypokalemia; D72.829 Elevated white blood cell count, unspecified; N39.0 Urinary tract infection, site not specified; I10 Essential (primary) hypertension; F11.23 Opioid dependence with withdrawal; F14.10 Cocaine abuse, uncomplicated
CPT/HCPCS: 36415; 70450-TC; 71045-TC-FY; 76775-TC; 76856-TC; 80048; 80053; 80061; 80307; 81003; 82570; 82962; 83690; 83735; 84100; 84156; 84300; 84439; 84443; 84484; 85025; 85027; 85610; 85730; 87040; 87086; 93005; 93010; 93306-TC; 99291; 99292; C9803-CS; J1644; U0003; U0005